=== PATIENT | female | born 1980 | race Two or more races ===

== ENCOUNTER 2018-02-07 22:12 | Observation (INO) | payer SELFPAY ==
[~2018-02-07] VITALS: Ht 162.6 cm; Wt 49.9 kg
[2018-02-07 23:00] VITALS: BP 107/75
[2018-02-07] MEDS ORDERED: METHYLERGONOVINE MALEATE 0.2 MG/ML AMP IM ONE (23:00)
[2018-02-07] MEDS ORDERED: SODIUM CHLORIDE 0.9% 1,000 ML IV ONE (23:00)
[2018-02-07 23:01] LABS: Basophils # (auto) 0.1 uL; Basophils % (auto) 1.3 % (0.0-2.0); Eosinophils # (auto) 0.1 uL; Eosinophils % (auto) 1.4 % (0.0-7.0); Hematocrit 37.8 % (36.0-46.0); Hemoglobin 12.6 g/dL (12.2-16.2); Lymphocytes # (auto) 1.8 uL; Lymphocytes % (auto) 25.1 % (10.0-50.0); Mean Corpuscular Hemoglobin 30.8 pg (28.0-32.0); Mean Corpuscular Hgb Conc. 33.5 g/dL (32.0-36.0); Monocytes # (auto) 0.6 uL; Monocytes % (auto) 8.2 % (0.0-12.0); Neutrophils # (auto) 4.6 uL; Platelet Count (auto) 257 10^3/uL (140-450); Red Blood Cells 4.11 10^6/uL (4.0-5.20); Red Cell Distribution Width 13.4 % (11.8-14.3); White Blood Cell 7.2 10^3/uL (4.4-10.8)
[2018-02-07 23:17] LABS: BUN/Creatinine Ratio 14.1; Calcium 7.4 mg/dL (8.5-10.1); Potassium 3.4 mmol/L (3.5-5.1)
[2018-02-07 23:19] LABS: Bilirubin, Total 0.5 mg/dL (0.2-1.0); Total Protein 6.4 g/dL (6.4-8.2)
== END 2018-02-08 01:22 | disposition home or self-care (01) | DRG 779 ==
LOC: EDBD 22:12 → ER 22:19 → OVERFLOW 22:20 → ER 02-08 01:20
PROVIDERS: ADMIT Emergency Medicine; ATTEND Emergency Medicine
DX: O03.9 Complete or unspecified spontaneous abortion without complication (principal); O26.892 Other specified pregnancy related conditions, second trimester; R10.2 Pelvic and perineal pain; O09.522 Supervision of elderly multigravida, second trimester; Z3A.15 15 weeks gestation of pregnancy
CPT/HCPCS: 36415; 76805; 80053; 84702; 85025; 86850; 86900; 86901; 96360; 96361; 96372; 99285; G0378; J2210; J7030

== ENCOUNTER 2024-06-15 09:47 | Emergency (ER) | payer OTHER ==
[~2024-06-15] VITALS: Ht 165.1 cm; Wt 129.1 kg
[2024-06-15 11:28] VITALS: BP 133/82; PULSE 63; RESP 16; TEMP 97.8; O2SAT 97
--- NOTE | 2024-06-15 12:07 | ED.PDOC ---
History of Present Illness HPI Comments This is a 36-year-old female with multiple medical problems comes in with some feet tingling after started working yesterday with some numbness. She states she also noticed that her toes some felt cold last night after working all day long and walking a ton. Denies any shortness of breath. Denies any calf pain. Denies any other injury. 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 Family History Family History: Unknown Social History Smoker: Non-Smoker Alcohol: Denies ETOH Use Drugs: Denies Drug Use Lives In: Home Neurological: reports: tingling (Some tingling in the bilateral toes) Musculoskeletal: reports: back pain Physical Exam General Appearance: Obese HEENT: Normal ENT Inspection, PERRL/EOMI, Pharynx Normal, TMs Normal Neck: Non-Tender, Normal Inspection Respiratory: Lungs Clear, Normal Breath Sounds Cardiovascular: No Edema, Normal Peripheral Pulses, Regular Rate/Rhythm Breast Exam: Deferred Gastrointestinal: Non Tender, Normal Bowel Sounds Genitalia: Deferred Pelvic: Deferred Rectal: Deferred Extremities: No calf tenderness, Normal capillary refill, Normal range of motion, No pedal edema Neurologic: Alert, No Motor Deficits, Normal Mood Cerebellar Function: Normal Reflexes: NOT DONE Skin: Dry, Warm Peripheral Pulses: 1+ dorsalis pedis (R), 1+ dorsalis pedis (L) Lymphatic: No Adenopathy Was a procedure done? Was a procedure done?: No Differential Dx Considerations may include: Cellulitis X-Ray, Labs, Meds, VS Vital Signs Date Time Temp Pulse Resp B/P (MAP) Pulse Ox O2 Delivery O2 Flow Rate FiO2 06/15/24 11:28 63 16 97 Room Air 06/15/24 11:28 97.8 63 16 133/82 (99) 97 97.8 06/15/24 10:03 97.8 63 16 132/82 (99) 97 X-Ray, Labs, Meds, VS Comment Patient seen and examined by me. Patient had an episode of toes being cold and white last night after walking all day. Now with a completely normal exam. No calf pain and good cap refill. Told the patient I do not think we need to do it any imaging now she has multiple chronic issues with chronic low back pain. Told her she needs to rest and watch to see if it occurs again and she can follow-up with her doctor they might want to do some imaging on an outpatient status Time of 1ST Reevaluation: 12:06 Reevaluation 1ST: Improved Patient Education/Counseling: Diagnosis, Treatment, Prognosis, Need For Follow Up, Pt Unresponsive Family Education/Counseling: No Family Present Departure 1 Departure Time of Disposition: 12:06 Impression: Primary Impression: Nerve pain Disposition: 01 HOME / SELF CARE / HOMELESS Condition: Good Additional Instructions: Please rest and elevate your legs Continue to monitor your symptoms if they start to occur more often follow-up with your doctor who might want to order some imaging and additional studies. Discharged With: Self Critical Care Note Critical Care Time?: No Stability Stability form required: DEANNA Gregory Jun 15, 2024 12:07
== END 2024-06-15 12:19 | disposition home or self-care (01) ==
LOC: ER 09:47
DX: K21.9 Gastro-esophageal reflux disease without esophagitis (principal); G58.8 Other specified mononeuropathies; Z98.890 Other specified postprocedural states

== ENCOUNTER 2024-09-08 18:43 | Emergency (ER) | payer OTHER ==
[~2024-09-08] VITALS: Ht 165.1 cm; Wt 121.0 kg
[2024-09-08 21:21] LABS: Basophils # (auto) 0.1 10 ^3/uL (0-0.2); Basophils % (auto) 0.7 % (0.0-2.0); Eosinophils # (auto) 0.6 10 ^3/uL (0-0.8); Eosinophils % (auto) 5.4 % (0.0-7.0); Hematocrit 48.6 % (36.0-46.0); Hemoglobin 16.3 g/dL (12.2-16.2); Lymphocytes # (auto) 3.5 10 ^3/uL (0.4-5.4); Lymphocytes % (auto) 31.6 % (10.0-50.0); Mean Corpuscular Hemoglobin 31.9 pg (28.0-32.0); Mean Corpuscular Hgb Conc. 33.5 g/dL (32.0-36.0); Mean Corpuscular Volume 95.2 fL (80.0-100.0); Monocytes % (auto) 8.8 % (0.0-12.0); Neutrophils # (auto) 5.9 10 ^3/uL (1.6-8.6); Neutrophils % (auto) 53.5 % (37.0-80.0); Platelet Count (auto) 355 10^3/uL (140-450); Red Cell Distribution Width 13.9 % (11.8-14.3); White Blood Cell 11.1 10^3/uL (4.4-10.8)
[2024-09-08 21:37] LABS: Anion Gap 9 (5-15); Carbon Dioxide 26 mmol/L (20-31); Chloride 107 mmol/L (98-107); Potassium 4.6 mmol/L (3.5-5.1); Sodium 142 mmol/L (136-145)
[2024-09-08 21:38] LABS: Calcium 9.7 mg/dL (8.7-10.4)
[2024-09-08 21:43] LABS: BUN/Creatinine Ratio 14.3 (10.0-20.0); Blood Urea Nitrogen 10 mg/dL (9-23); Glucose 96 mg/dL (74-106); Magnesium 2.4 mg/dL (1.6-2.6)
--- NOTE | 2024-09-08 22:11 | DVH ---
CLINICAL INDICATION: fall / syncope / pain TECHNIQUE: XY L KNEE 3V XRAY Comparison: None FINDINGS: No osseous or joint abnormality identified with no evidence of joint effusion, fracture or dislocatio n. Normal joint space. IMPRESSION: No abnormality demonstrated.
--- NOTE | 2024-09-08 22:54 | ED.PDOC ---
History of Present Illness HPI Comments 36 y/o F presents with c/o left-knee pain, bruising, and abrasion wounds s/p syncope and fall injury, today. Patient endorses on "passing out," while sitting on the edge of her recliner at home and fall and injuring her left-knee, earlier. Patient reports a history of GERD, TIA, peripheral neuropathy, and th rombocythemia. She denies any prior symptoms or previous knee injuries and sustaining any additional injuries along with having numbness, weakness, dizziness, or other associated symptoms at this time. Chief Complaint: Syncope Time Seen by MD: 20:30 Primary Care Provider: YOLANDA Reviewed Notes: Nurses Notes, Medications, Allergies Allergies: Coded Allergies: NO KNOWN ALLERGIES (Unverified , 02/07/18) Information Source: Patient, Emergency Med Personnel Mode of Arrival: Ambulatory Severity: Moderate Timing: Hours Duration: Since onset Prehospital treatment: None Past Medical History PAST MEDICAL HISTORY: GERD, TIA Past Medical History (Other): peripheral neuropathy, morbid obesity, thrombocythemia ROBOTIC TECHNICIAN History: Other (PCOS) Family History Family History: Unknown Social History Smoker: Non-Smoker Alcohol: Denies ETOH Use Drugs: Denies Drug Use Lives In: Home Cardiovascular: reports: syncope Musculoskeletal: reports: others (left knee pain ) Integumetry: reports: bruises (left knee ), wounds (abrasion wounds to left knee ) All Other Systems: Reviewed and Negative (negative unless otherwise stated above or in HPI) Physical Exam General Appearance: No Apparent Distress, Obese HEENT: Normal ENT Inspection, Pharynx Normal, TMs Normal Neck: Full Range of Motion, Non-Tender, Normal, Normal Inspection Respiratory: Chest Non-Tender, Lungs Clear, No Accessory Muscle Use, No Respiratory Distress, Normal Breath Sounds Cardiovascular: No Edema, No JVD, No Murmur, No Gallop, Normal Peripheral Pulses, Regular Rate/Rhythm Breast Exam: Deferred Gastrointestinal: No Organomegaly, Non Tender, No Pulsatile Mass, Normal Bowel Sounds, Soft Genitalia: Deferred Pelvic: Deferred Rectal: Deferred Extremities: No calf tenderness, Normal capillary refill, Normal range of motion, No pedal edema, Tender (tenderness and contusions to left anterior knee) Musculoskeletal : Apperance: Normal Neurologic: Alert, web art director II-XII nml as Tested, No Motor Deficits, Normal Affect, Normal Mood, No Sensory Deficits Cerebellar Function: Normal Reflexes: Normal Skin: Bruises (contusions to left anterior knee), Dry, Normal Color, Warm, Wounds (deep abrasions to the left knee, ) Lymphatic: No Adenopathy Was a procedure done? Was a procedure done?: No Differential Dx Considerations may include: fractures, dislocations, abrasions, contusions, electrolyte imbalance, dehydration, vasovagal response X-Ray, Labs, Meds, VS Vital Signs Date Time Temp Pulse Resp B/P (MAP) Pulse Ox O2 Delivery O2 Flow Rate FiO2 09/08/24 23:47 98.7 57 14 111/79 (90) 100 98.7 09/08/24 23:30 62 18 98 Room Air* 0 21 09/08/24 19:34 98.7 84 18 128/99 (109) 97 Lab Test 09/08/24 21:04 Range/Units White Blood Count 11.1 H 4.4-10.8 10^3/uL Red Blood Count 5.10 4.0-5.20 10^6/uL Hemoglobin 16.3 H 12.2-16.2 g/dL Hematocrit 48.6 H 36.0-46.0 % Mean Corpuscular Volume 95.2 80.0-100.0 fL Mean Corpuscular Hemoglobin 31.9 28.0-32.0 pg Mean Corpuscular Hemoglobin Concent 33.5 32.0-36.0 g/dL Red Cell Distribution Width 13.9 11.8-14.3 % Platelet Count 355 140-450 10^3/uL Mean Platelet Volume 7.3 6.9-10.8 fL Neutrophils (%) (Auto) 53.5 37.0-80.0 % Lymphocytes (%) (Auto) 31.6 10.0-50.0 % Monocytes (%) (Auto) 8.8 0.0-12.0 % Eosinophils (%) (Auto) 5.4 0.0-7.0 % Basophils (%) (Auto) 0.7 0.0-2.0 % Neutrophils # (Auto) 5.9 1.6-8.6 10 ^3/uL Lymphocytes # (Auto) 3.5 0.4-5.4 10 ^3/uL Monocytes # (Auto) 1.0 0-1.3 10 ^3/uL Eosinophils # (Auto) 0.6 0-0.8 10 ^3/uL Basophils # (Auto) 0.1 0-0.2 10 ^3/uL Nucleated Red Blood Cells 0.0 % Sodium Level 142 136-145 mmol/L Potassium Level 4.6 3.5-5.1 mmol/L Chloride Level 107 98-107 mmol/L Carbon Dioxide Level 26 20-31 mmol/L Anion Gap 9 5-15 Blood Urea Nitrogen 10 9-23 mg/dL Creatinine 0.70 0.550-1.02 mg/dL Glomerular Filtration Rate Calc 116 >90 mL/min BUN/Creatinine Ratio 14.3 10.0-20.0 Serum Glucose 96 74-106 mg/dL Calcium Level 9.7 8.7-10.4 mg/dL Magnesium Level 2.4 1.6-2.6 mg/dL Troponin I High Sensitivity < 3 L </=34 ng/L [place] [address] Ph: [phone] DIAGNOSTIC IMAGING Diagnostic Imaging Report : [id number] Signed PATIENT: ACCT: [id number] UNIT: [id number] : 05/13/1988 LOC: ER ROOM / BED: / AGE / SEX: 36 / F ADM STATUS: REG ER SERVICE 04 ORDERING PHYSICIAN: SUZIE ALVES MD PROCEDURE(s): LKNE3 - L KNEE 3V XRAY REASON: fall / syncope / pain ORDER NUMBER(s): [id number], ACCESSION NUMBER(s): [id number] CLINICAL INDICATION: fall / syncope / pain TECHNIQUE: XY L KNEE 3V XRAY Comparison: None FINDINGS: No osseous or joint abnormality identified with no evidence of joint effusion, fracture or dislocation. Normal joint space. IMPRESSION: No abnormality demonstrated. ATED BY: RUFUS ALBERTO MD DICTATED DATE/TIME: 09/08/242207 SIGNED BY: RUFUS ALBERTO MD SIGNED DATE/TIME: 09/08/242207 CC: Time of 1ST Reevaluation: 21:00 Reevaluation 1ST: Unchanged Time of 2ND Reevaluation: 22:31 Reevaluation 2ND: Improved Patient Education/Counseling: Diagnosis, Treatment Family Education/Counseling: No Family Present Departure 1 Departure Time of Disposition: 22:30 Impression: Primary Impression: Syncope and collapse Additional Impression: Contusion of left knee Disposition: HOME / SELF CARE / HOMELESS Condition: Stable Discharged With: Self Critical Care Note Critical Care Time?: No Stability Stability form required: No Heart Score Heart Score: Heart Score Response (Comments) Value History N/A 0 EKG N/A 0 Age N/A 0 Risk Factors N/A 0 Troponin N/A 0 Total 0 I personally scribed for SUZIE ALVES MD ([email or web address]) on 09/08/24 at 22:54. Electronically submitted by Brett Ha [email or web address]). SUZIE ALVES MD Sep 08, 2024 22:54
[2024-09-08 23:30] VITALS: PULSE 62; RESP 18; O2SAT 98
[2024-09-08 23:47] VITALS: BP 111/79; PULSE 57; RESP 14; TEMP 98.7; O2SAT 100
== END 2024-09-08 23:52 | disposition home or self-care (01) ==
LOC: ER 18:43
DX: S80.02XA Contusion of left knee, initial encounter (principal); R55 Syncope and collapse; K21.9 Gastro-esophageal reflux disease without esophagitis; E66.01 Morbid (severe) obesity due to excess calories; Z68.41 Body mass index [BMI] 40.0-44.9, adult; Z86.73 Personal history of transient ischemic attack (TIA), and cerebral infarction without residual deficits; W18.39XA Other fall on same level, initial encounter; Y93.89 Activity, other specified; Y92.89 Other specified places as the place of occurrence of the external cause; Y99.8 Other external cause status
CPT/HCPCS: 36415; 73562; 80048; 83735; 84484; 85025